=== PATIENT | male | born 1970 | race Caucasian/White ===

== ENCOUNTER 2025-04-01 16:42 | Emergency (ER) | payer MEDICAID, SELFPAY ==
[2025-04-01 17:27] VITALS: BP 122/68; PULSE 67; RESP 20; TEMP 37; O2SAT 96; BMI 21.8
--- NOTE | 2025-04-01 17:31 | ED_ITS ---
HPI - Skin/Abscess/Foreign Bdy General Chief complaint: Skin/Abscess/Foreign Body Stated complaint: rash on legs Time Seen by Provider: 04/01/25 17:30 Source: patient, family and RN notes reviewed Mode of arrival: ambulatory Limitations: language barrier History of Present Illness ED Provider: Claudia Garcia PA-C HPI narrative: Patient reports to urgent Care today following an event of a rash on his hands and legs. He did go camping and septum intense with some of the family. One other family member has the same rashes him he has it on his hands and legs he describes it as pruritic like in nature. It does not spread to the rest of his body. He has not tried to treat it in any way. At no point did patient develop any lip or tongue swelling, difficulty with breathing, shortness of breath, wheezing, GI distress, or appear to be flushing. MD complaint: rash Related Data Previous Rx's ?Medication ?Instructions ?Recorded permethrin 5 % topical cream 1 appl topical Q14D 2 dos es #60 04/01/25 grams prednisone 20 mg tablet 40 mg (2 x 20 mg) PO DAILY # 20 tabs 04/01/25 Allergies Allergy/AdvReac Type Severity Reaction Status Date / Time No Known Allergies (No Known Allergy Unverified 04/01/25 17:28 Allergies*) Review of Systems Review of Systems: Yes all other systems are reviewed and are negative PMFSH Past Medical History Attestation statement: The following information was validated with the patient. Source: obtained from family and nursing notes reviewed Social History Social History Advance Directives: No Advance Directives Information Provided: No Physical Exam Vital Signs: Vital Signs: Last Vital Signs Temp 98.6 F 04/01/25 17:39 Pulse 67 04/01/25 17:39 Resp 20 04/01/25 17:39 BP 122/68 04/01/25 17:39 Pulse Ox 96 04/01/25 17:39 O2 Del Method Room Air 04/01/25 17:39 BMI result Body Mass Index 21.8 General: Appears in no acute distress, appears well nourished body habitus is normal, appears stated age. No septic or ill-appearing. Vitals reviewed normal, PMH/Social and Surgical hx reviewed including allergies and current medications. - Head: Normocephalic, no obvious trauma or skin lesions noted. Eyes: EOMI ENMT: moist oral mucosa, no tongue or lip swelling noted no respiratory distress Neck: trachea midline no lymphadenopathy Cardiovascular: peripheral perfusion normal, Regular heart rate regular rhythm Respiratory: no respiratory distress lungs clear to auscultation bilaterally Abdomen: nondistended Extremities: warm and moving without difficulty unless otherwise detailed in physical exam if applicable. Psych: Cooperative Skin: Small areas of jagged tal on the legs along with papulovesicular rash with erythematous base also in clusters different from the linear burrowrash Neuro: Alert and oriented. Const: General: cooperative and healthy appearing Medical Decision Making Medical Decision Making MDM Narrative: The patient presents with a rash that is not consistent with shingles, oape-dyos-ygu-mouth disease (HFMD), tinea, infectious cellulitis, anaphylaxis, urticaria, or angioedema based on the distribution, appearance, and absence of associated systemic symptoms. The rash is most likely due to contact dermatitis and scabies, given its characteristics and exposure history. The percentage of body surface area affected was noted, and a prescription for a topical steroid ointment was provided, with consideration given to oral steroids. Risks and benefits of treatment were discussed with the patient. [id number] antihistamines were recommended for symptomatic relief. Expectant management was discussed, including the need to seek medical attention for any concerns, changes in the rash pattern, or worsening symptoms. The patient, family, or friend expressed understanding of the plan, agreed to the approach, and the patient was discharged home in stable condition. Differential Diagnosis Differential Diagnoses: The differential diagnosis associated with the presentation includes see MDM Admission/Observation Consideration of admission/observation: Escalation of care including admission/observation considered Patient would have been admitted to the hospital had his work up had any findings where hospital admission was appropriate and his clinical presentation warranted hospital admission. Independent Historian Clinical information obtained from an independent historian. History obtained from or confirmed by: Spouse and Other (child) Tests considered The following testing was considered but not selected: Would have considered wound culture had this rash had unknown etiology Prescription Management I considered prescription management with: Antibiotic and Other Social Determinants Patient?s care significantly limited by Social Determinants of Health including: Other Social Determinant of Health Discharge Plan Discharge Clinical Impression: Rash Patient Disposition: Home, Self-Care Instructions: Scabies (ED), Dermatitis (ED) Additional Instructions: You were seen in the emergency department for a rash. Has a pattern of potential scabies versus contact dermatitis but does not appear to be infectious cellulitis or tinea. Just in case this is scabies please be sure to wash all bed sheets very thoroughly. Regardless of the cause of the rash they all seem to have the same things that make it worse such as friction he in hot water. Please avoid limited exposure to this. To help with the itching you can take an antihistamine twice daily until improved. For any worsening signs of infection such as increased redness discharge or pain on the rash please be re-evaluated. Overall can take skin just like any other cuts or scrapes up to a month to fully heal. Prescriptions: New permethrin 5 % cream 1 appl topical Q14D Qty: 60 0RF Rx Instructions: apply second treatment 14 days after first treatment if rash remain prednisone 20 mg tablet 40 mg PO DAILY Qty: 20 0RF Interventions: ED Discharge Assessment Last Done: 04/01/25 17:39 Discharge Date/Time: 04/01/25 17:40 Print Language: Vietnamese
[2025-04-01 17:39] VITALS: BP 122/68; PULSE 67; RESP 20; TEMP 37; O2SAT 96
== END 2025-04-01 17:40 | disposition home or self-care (01) ==
LOC: HO.ED 17:40
PROVIDERS: Emergency Provider Emergency Medicine
DX: R21 Rash and other nonspecific skin eruption (principal)
CPT/HCPCS: 99282; 99283

== ENCOUNTER 2025-06-18 11:29 | Emergency (ER) | payer MEDICAID, SELFPAY ==
[2025-06-18 11:46] VITALS: BP 135/77; PULSE 73; RESP 18; TEMP 36.6; O2SAT 98; BMI 20.2
--- NOTE | 2025-06-18 11:47 | ED.URI ---
HPI - URI/Sore Throat General Chief Complaint: General Medical Stated Complaint: Covid, congestion. meds arent working Time Seen by Provider: 06/18/25 11:50 Source: patient and spanish interpreter/translator Mode of arrival: ambulatory Limitations: language barrier History of Present Illness ED Provider: Марина Friedman APRN HPI Narrative: 54 yo male with history of HTN, chronic back pain, arthritis presents to the ER with sore throat, nasal congestion and headache x 1 week. Tested positive for COVID one week ago. No chest pain, shortness of breath, cough, vomiting diarrhea, abdominal pain, neck pain, neck stiffness, fevers, chills, skin rash. Related Data Previous Rx's ?Medication ?Instructions ?Recorded permethrin 5 % topical cream 1 appl topical Q14D 2 doses #60 04/01/25 grams prednisone 20 mg tablet 40 mg (2 x 20 mg) PO DAILY #20 tabs 04/01/25 Allergies Allergy/AdvReac Type Severity Reaction Status Date / Time No Known Allergies (No Known Allergy Verified 06/18/25 11:48 Allergies*) Review of Systems Review of Systems: Yes all other systems are reviewed and are negative Constitutional: Constitutional: Reports no additional constitutional complaints, Denies body ache(s), Denies chills, Denies fever(s), Denies headache(s) and Denies weakness Eyes: Eyes: Reports no additional eye complaints and Denies change in vision ENT: Reports system reviewed and no additional complaints, except as documented, Denies dizziness, Denies headache(s), Reports nasal congestion, Denies nasal discharge, Denies neck pain and Reports sore throat Cardiovascular: Cardiovascular: Reports no additional cardiovascular complaints, Denies chest pain, Denies leg edema and Denies dyspnea Respiratory: Respiratory: Reports no additional respiratory complaints, Denies cough and Denies dyspnea Gastrointestinal: Gastrointestinal: Reports no additional gastrointestinal complaints, Denies abdominal pain, Denies diarrhea, Denies nausea and Denies vomiting Genitourinary: Genitourinary: Denies urinary incontinence Musculoskeletal: Musculoskeletal: Reports no additional musculoskeletal complaints, Denies back pain, Denies arthralgias, Denies joint swelling, Denies neck pain, Denies numbness and Denies tingling Integumentary/Breasts: Skin/Breast: Reports system reviewed and no additional complaints, except as docu and Denies rash Neurologic: Reports system reviewed and no additional complaints, except as documented, Denies Abnormal speech present, Denies dizziness, Denies headache(s), Denies numbness, Denies tingling and Denies weakness PMFSH Past Medical History Attestation statement: The following information was validated with the patient. Source: old records reviewed and nursing notes reviewed Physical Exam Vital Signs: Vital Signs: Last Vital Signs Temp 98 F 06/18/25 11:46 Pulse 73 06/18/25 11:46 Resp 18 06/18/25 11:46 BP 135/77 06/18/25 11:46 Pulse Ox 98 06/18/25 11:46 O2 Del Method Room Air 06/18/25 11:46 BMI result Body Mass Index 20.2 Const: General: cooperative, healthy appearing, comfortable and no acute distress Orientation/consciousness: patient oriented x3 Limitations: no limitations HEENT: Head: Yes normal to inspection Ears: hearing grossly normal bilaterally and TM's normal bilaterally General nose exam: Normal external nose present Face and sinus: Yes normal facial exam Mouth: Normal oral and palatal mucosa present Throat: Yes posterior oropharynx normal, Yes tonsils normal and Yes uvula midline Eyes: General: appearance normal, both eyes and all related structures Pupils: Equal, round and reactive pupils present Neck: Neck: Yes normal visual inspection, Yes full ROM, Yes no lymphadenopathy and Yes no meningeal signs Chest: Chest palpation & inspection: normal inspection of the chest Resp: Effort & Inspection: normal respiratory effort Auscultation: clear to auscultation bilaterally Cardio: Rate: regular rate Rhythm: regular rhythm Peripheral pulses: Peripheral pulses 2+ throughout GI: Inspection: Yes normal to inspection Palpation (GI): Soft to palpation and nontender Auscultation: normal bowel sounds Back/Spine/Pelvis: Thoracic/Lumbar Spine: thoracic and lumbar spine normal to inspection Skin: General skin exam: no rashes or lesions noted Neuro: General: patient oriented x3, no meningeal signs, no focal motor deficits and normal sensation to monofilament Cranial nerves: Yes Equal, round and reactive pupils present Cognition (Neuro): normal cognition Speech: No Abnormal speech present Gait exam (Neuro): Normal gait present Motor exam (neuro): 5/5 motor strength present throughout Extrem: General: Yes normal to inspection Medical Decision Making Medical Decision Making MDM Narrative: 54 yo male with history of HTN, chronic back pain, arthritis presents to the ER with sore throat, nasal congestion and headache x 1 week. Tested positive for COVID one week ago. No chest pain, shortness of breath, cough, vomiting diarrhea, abdominal pain, neck pain, neck stiffness, fevers, chills, skin rash. Exam is benign VSS Recommended supportive measures at home. Reviewed worrisome signs and symptoms of when to return to the emergency room. Comfortable plan for discharge home. Differential Diagnosis Differential Diagnoses: The differential diagnosis associated with the presentation includes viral syndrome Discharge Plan Discharge Clinical Impression: Acute viral syndrome Patient Disposition: Home, Self-Care Instructions: Viral Syndrome (ED) Prescriptions: No Action permethrin 5 % cream 1 appl topical Q14D Qty: 60 0RF Rx Instructions: apply second treatment 14 days after first treatment if rash remain prednisone 20 mg tablet 40 mg PO DAILY Qty: 20 0RF Referrals: Physician,None [Primary Care Provider, Medical] Print Language: [place]
[2025-06-18 12:09] VITALS: BP 135/77; PULSE 73; RESP 18; TEMP 36.6; O2SAT 98
== END 2025-06-18 12:09 | disposition home or self-care (01) ==
LOC: HO.ED 12:02
PROVIDERS: Emergency Provider Emergency Medicine
DX: U07.1 COVID-19 (principal); M54.50 Low back pain, unspecified; R51.9 Headache, unspecified; J02.9 Acute pharyngitis, unspecified
CPT/HCPCS: 99282